=== PATIENT | female | born 1955 | race Caucasian/White ===

== ENCOUNTER → 2016-07-11 | Outpatient (CLI) | payer OTHER | LOC: CIMAGING 12:02 | PROVIDERS: ATTEND Family Medicine | DX: Z12.31 Encounter for screening mammogram for malignant neoplasm of breast (principal) | CPT/HCPCS: G0202 ==

== ENCOUNTER → 2016-09-26 | Outpatient (CLI) | payer OTHER | LOC: CIMAGING 13:51 | PROVIDERS: ATTEND Family Medicine | DX: M51.36 Other intervertebral disc degeneration, lumbar region (principal); M47.896 Other spondylosis, lumbar region; M89.38 Hypertrophy of bone, other site | CPT/HCPCS: 72114-PO ==

== ENCOUNTER 2016-10-29 13:00 | Day surgery (SDC) | payer OTHER ==
[2016-10-29] MEDS ORDERED: LIDOCAINE 1% 300 MG/30 ML SDV ONE (14:19)
[2016-10-29] MEDS ORDERED: TRIAMCINOLONE ACETONIDE 200 MG/5 ML MDV IM ONE (14:19)
== END 2016-10-29 14:35 | disposition home or self-care (01) ==
LOC: FIMAGING 13:00
PROVIDERS: ATTEND Clinical Nurse Specialist
PROC: 3E0S33Z Introduction of Anti-inflammatory into Epidural Space, Percutaneous Approach (ICD-10-PCS; principal; 2016-10-29)
PROC: 3E0S3BZ Introduction of Anesthetic Agent into Epidural Space, Percutaneous Approach (ICD-10-PCS; principal; 2016-10-29)
DX: M51.36 Other intervertebral disc degeneration, lumbar region (principal); M51.37 Other intervertebral disc degeneration, lumbosacral region; F17.200 Nicotine dependence, unspecified, uncomplicated; Z79.01 Long term (current) use of anticoagulants
CPT/HCPCS: J3301

== ENCOUNTER 2017-07-30 07:51 | Day surgery (SDC) | payer OTHER ==
[2017-07-30] MEDS ORDERED: LIDOCAINE 1% 300 MG/30 ML SDV ONE (08:37)
[2017-07-30] MEDS ORDERED: IOPAMIDOL (ISOVUE-M 300) 15 ML VIAL ONE (08:38)
[2017-07-30] MEDS ORDERED: DEXAMETHASONE 10 MG/ML VIAL ONE (08:38)
[2017-07-30] MEDS ORDERED: TRIAMCINOLONE ACETONIDE 200 MG/5 ML MDV IM ONE (08:41)
--- NOTE | 2017-07-30 09:34 | PDRADPN ---
Radiology Procedure Note Date of Procedure: 07/30/17 Radiologist: Du Murrell Anesthesia: Local (Specify) Pre-op Diagnosis: spinal stenosis Post-op Diagnosis: same Indication: radicular pain BLE Procedure: caudal ADAIR Finding(s): normal epidurogram verified prior to medication injection Inf/Abcess present in the surg proc area at time of surgery?: No EBL: 0 Complications: none
== END 2017-07-30 09:50 | disposition home or self-care (01) ==
LOC: FIMAGING 07:51
PROVIDERS: ATTEND Registered Nurse
PROC: 3E0S33Z Introduction of Anti-inflammatory into Epidural Space, Percutaneous Approach (ICD-10-PCS; principal; 2017-07-30)
PROC: 3E0S3BZ Introduction of Anesthetic Agent into Epidural Space, Percutaneous Approach (ICD-10-PCS; principal; 2017-07-30)
DX: M48.062 Spinal stenosis, lumbar region with neurogenic claudication (principal); M47.26 Other spondylosis with radiculopathy, lumbar region; M47.27 Other spondylosis with radiculopathy, lumbosacral region; M54.40 Lumbago with sciatica, unspecified side
CPT/HCPCS: J1100; J3301; Q9967

== ENCOUNTER → 2017-08-21 | Outpatient (CLI) | payer OTHER | LOC: CIMAGING 11:54 | PROVIDERS: ATTEND Family Medicine | DX: Z12.31 Encounter for screening mammogram for malignant neoplasm of breast (principal) ==

== ENCOUNTER 2017-11-30 13:50 | Day surgery (SDC) | payer OTHER ==
[2017-11-30] MEDS ORDERED: IOPAMIDOL (ISOVUE-M 300) 15 ML VIAL ONE (14:37)
[2017-11-30] MEDS ORDERED: TRIAMCINOLONE ACETONIDE 40 MG/ML VIAL ONE ×2 (14:37→15:06)
[2017-11-30] MEDS ORDERED: LIDO/EPI 1% **for epidural** 30 ML SDV ONE (14:37)
[2017-11-30] MEDS ORDERED: LIDOCAINE 1% 300 MG/30 ML SDV ONE (14:40)
== END 2017-11-30 15:30 | disposition home or self-care (01) ==
LOC: FIMAGING 13:50
PROVIDERS: ATTEND Registered Nurse
DX: M54.40 Lumbago with sciatica, unspecified side (principal); M48.062 Spinal stenosis, lumbar region with neurogenic claudication; M47.817 Spondylosis without myelopathy or radiculopathy, lumbosacral region; M47.816 Spondylosis without myelopathy or radiculopathy, lumbar region
CPT/HCPCS: J3301; Q9967

== ENCOUNTER → 2018-04-28 | Outpatient (CLI) | payer OTHER | LOC: CLAB 08:43 → CIMAGING 08:43 → EDSTATUS 08:45 | PROVIDERS: ATTEND Family Medicine | DX: M25.531 Pain in right wrist (principal); M25.562 Pain in left knee | CPT/HCPCS: 73110-PO; 73562-PO ==